=== PATIENT | male | born 1990 | race Caucasian/White ===

== ENCOUNTER 2016-12-17 | Emergency (ER) | payer OTHER ==
[~2016-12-17] VITALS: Ht 185.4 cm; Wt 81.6 kg
[2016-12-17] MEDS ORDERED: SUBO4MIS SL (00:06)
[2016-12-17 00:08] VITALS: BP 130/70
[2016-12-17] MEDS ORDERED: ADACEL/BOOSTRIX VACCINE (DIPHTH/PERTUSS/ACELL/TETANUS)0.5ML SYR (90715) IM ONE (00:45)
[2016-12-17] MEDS ORDERED: DERMABOND TOPICAL SKIN ADHESIVE TOP ONE (00:45)
[2016-12-17] MEDS ORDERED: NEOSPORIN OINT 0.9 GM PKT (FLOOR STOCK) As Ordered ONE (01:12)
== END 2016-12-17 01:24 | disposition home or self-care (01) ==
LOC: M ED 01:23
DX: S61.210A Laceration without foreign body of right index finger without damage to nail, initial encounter (principal); W26.8XXA Contact with other sharp object(s), not elsewhere classified, initial encounter; Y92.9 Unspecified place or not applicable; Y93.9 Activity, unspecified; Y99.9 Unspecified external cause status; F17.200 Nicotine dependence, unspecified, uncomplicated; Z79.899 Other long term (current) drug therapy